=== PATIENT | female | born 1935 | race Caucasian/White ===

== ENCOUNTER 2020-04-15 10:26 | Inpatient (IN) | payer MEDICARE, OTHER ==
[~2020-04-15] VITALS: Ht 157.5 cm; Wt 62.0 kg
[2020-04-15] MEDS ORDERED: LOSA100T50 PO (10:43)
[2020-04-15] MEDS ORDERED: VITATAB74 PO (10:43)
[2020-04-15] MEDS ORDERED: ASPI81TA85 PO (10:43)
[2020-04-15] MEDS ORDERED: FURO20TA2 PO (10:43)
[2020-04-15] MEDS ORDERED: SIMV40TA20 PO (10:43)
[2020-04-15] MEDS ORDERED: AMLO5TAB6 PO (10:43)
[2020-04-15] MEDS ORDERED: FAMO40TA3 PO (10:43)
[2020-04-15] MEDS: NS 1,000 ML IV SCH ×3 (11:11→21:02)
[2020-04-15 11:15] LABS: HEMATOCRIT 48.1 % (36.0-47.0); HEMOGLOBIN 16.8 g/dl (12.0-15.5); MEAN CORPUSCULAR HEMOGLOBIN 32.6 pg (27.0-33.0); MEAN CORPUSCULAR HGB CONC 34.9 g/dl (32.0-36.5); MEAN CORPUSCULAR VOLUME 93.4 fl (80.0-96.0); PLATELET COUNT, AUTOMATED 344 10^3/uL (150-450); RED BLOOD COUNT 5.15 10^6/uL (4.00-5.40); WHITE BLOOD COUNT 8.7 10^3/uL (4.0-10.0)
[2020-04-15 11:40] LABS: ALBUMIN 3.7 GM/DL (3.2-5.2); BILIRUBIN,DIRECT 0.5 MG/DL (0.0-0.2); BILIRUBIN,TOTAL 1.5 MG/DL (0.2-1.0); TOTAL PROTEIN 7.2 GM/DL (6.4-8.2)
[2020-04-15] MEDS ORDERED: NS 500 ML IV ONE (11:45)
[2020-04-15 12:30] LABS: LYMPHOCYTES 11 % (16-44); MONOCYTES 8 % (0-5); NEUTROPHILS 77 % (28-66); PLATELET ESTIMATE NORMAL (NORMAL)
--- NOTE | 2020-04-15 12:55 | HPEPDOC ---
[facility] Medical History & Physical Date of Admission Apr 15, 2020 Date of Service: Apr 15, 2020 Primary Care Physician: LELIA ESTRADA MD [facility] Attending Physician: DARRELL WEAVER MD History and Physical TIME OF SERVICE: 2:10 PM CHIEF COMPLAINT: Dehydration HISTORY OF PRESENT ILLNESS: This is an 84-year-old female who came to the hospital because she felt dehydrated. Since last she had she had abdominal pain with reflux and vomiting but this has now resolved. She denied having any diarrhea at any point in time. Despite the symptoms resolving. She now feels dehydrated and dizzy, so she when she stands up. Therefore, she decided to come to the hospital for evaluation. In the ER, she received 500 mils dose of IV fluids and her creatinine was noted to be elevated REVIEW OF SYSTEMS: 12 point review of systems negative except as listed in HPI PAST MEDICAL/ SURGICAL HISTORY: Chronic hypertension Dyslipidemia GERD Hypothyroidism Osteoporosis/old T12 compression deformity Appendectomy Partial hysterectomy Bilateral cataract surgery SOCIAL HISTORY: She doesn't smoke. She doesn't drink FAMILY HISTORY: Diabetes ALLERGIES: Please see below. HOME MEDICATIONS: Please see below. PHYSICAL EXAMINATION: Vital Signs Date Time Temp Pulse Resp B/P (MAP) Pulse Ox O2 Delivery O2 Flow Rate FiO2 04/15/20 10:27 99.6 90 16 110/53 (72) 94 Room Air GEN: Slim build / well developed/ NAD HEENT: NCAT / mucus membranes moist and pink CVS: RRR/NMRG/ radial pulses intact LUNGS: no coughing / lungs are clear to auscultation bilaterally on room air ABDOMEN: Contour (flat) / soft & not tender with palpation MSK/EXTREMITIES: range of motion intact in all 4 extremities NEURO: CN 2-12 are grossly intact / speech is not dysarthric PSYCH: alert and oriented to person place and time/ able to understand and follow all commands LABORATORY DATA: Laboratory Tests 04/15/20 10:59 04/15/20 14:50 IMAGING: CT abdomen and pelvis "IMPRESSION: Small bowel obstruction with transition point identified in the right mid abdomen. No free air or free fluid. Unreviewed" ASSESSMENT: Ms. Sanchez is an 84 -year-old with a history of hypertension, dyslipidemia, GERD, hypothyroidism, osteoporosis, and multiple surgeries was admitted for evaluation of KAE. PLAN: 1. Dehydration/prerenal KAE Likely due to vomiting and poor oral intake Plan: Is/Os, daily weights / IVF / f/u ulytes for FENa or FEUrea / renal US / hold losartan / renal diet 2. Hypotension She has a history of hypertension likely secondary to vomiting Plan: Check orthostatics/fall precautions IV fluids / Zofran when necessary / hold amlodipine, losartan, and Lasix 3. Hyponatremia likely due to vomiting and poor oral intake Plan: IV fluids / f/u BMP 4.Abdominal pain of unclear cause Has resolved DVT PROPHYLAXIS: Heparin DISPOSITION: Pending clinical course Home Medications Scheduled Amlodipine Besylate (Amlodipine Besylate) 5 Mg Tablet, 1 TAB PO DAILY Aspirin (Aspir 81) 81 Mg Tablet.dr, 81 MG PO DAILY Carboxymethylcellulose Sodium (Refresh Tears) 15 Ml Drops, 1 DROP OU DAILY Cholecalciferol (Vitamin D3) (Vitamin D3) 1,000 Unit Tablet, 1,000 UNITS PO 2XW SUN/THURS Famotidine (Famotidine) 40 Mg Tablet, 40 MG PO DAILY Furosemide (Furosemide) 20 Mg Tablet, 20 MG PO DAILY Losartan Potassium (Losartan Potassium) 100 Mg Tablet, 100 MG PO DAILY Simvastatin (Simvastatin) 40 Mg Tablet, 40 MG PO DAILY Allergies Coded Allergies: No Known Allergies (Unverified , 04/15/20) A-FIB/CHADSVASC A-FIB History Current/History of A-Fib/PAF?: No Current PO Anticoag Therapy: DARRELL Browning MD Apr 15, 2020 12:55
[2020-04-15] MEDS ORDERED: VITAD1000T PO (13:24)
[2020-04-15] MEDS ORDERED: REFR0.5D8 OU (13:24)
[2020-04-15] MEDS ORDERED: MOM 30ML SUSPENSION UDC PO PRN (13:30)
[2020-04-15] MEDS ORDERED: ACETAMINOPHEN TAB 650MG DOSE (2X325MG) PO PRN (13:30)
[2020-04-15] MEDS ORDERED: MAALOX 30 ML SUSP *UDC PO PRN (13:30)
[2020-04-15 14:15] VITALS: BP 113/57
--- NOTE | 2020-04-15 14:37 | REP ---
CT ABDOMEN AND PELVIS WITHOUT CONTRAST: CT abdomen and pelvis performed without oral or IV contrast. Sagittal and coronal reconstruction images are performed. There are no priors for comparison. The visualized lung bases demonstrate fibrotic change. The liver is grossly unremarkable. The gallbladder is collapsed. Spleen is normal in size. Adrenal glands are normal. No gross pancreatic abnormality is seen. There are bilateral renal cysts present without hydronephrosis. There is moderate atherosclerotic calcification of the abdominal aorta without aneurysm. There is no adenopathy. There is no free air or free fluid. Multiple moderately dilated small bowel loops are present with moderate dilatation of the stomach as well. Findings are compatible with small bowel obstruction with a transition point identified in the right mid abdomen. The colon is relatively collapsed. There is diffuse diverticulosis of the lower left and sigmoid colon without evidence of acute diverticulitis. Urinary bladder is mildly distended and grossly unremarkable. The patient has had a hysterectomy. The ovaries are unremarkable with no pelvic mass. There are degenerative changes of the spine. There is a moderate compression deformity of T12, which is probably old. There is a small hiatal hernial. IMPRESSION: Small bowel obstruction with transition point identified in the right mid abdomen. No free air or free fluid. Electronically Signed by Van Kinney MD 04/16/2020 11:23 A
[2020-04-15 15:00] VITALS: BP_SYST 105; BP_SYST 111; BP_SYST 113; BP_DIAS 50; BP_DIAS 56; BP_DIAS 59
[2020-04-15 15:42] LABS: CALCIUM LEVEL 9.5 MG/DL (8.8-10.2); CREATININE FOR GFR 3.04 MG/DL (0.55-1.30); GLOMERULAR FILTRATION RATE 15.6 (>32); POTASSIUM SERUM 3.6 MEQ/L (3.5-5.1)
--- NOTE | 2020-04-15 17:38 | REPVR ---
PROCEDURE INFORMATION: Exam: US Retroperitoneal Limited, Kidneys Exam date and time: 04/15/2020 5:25 PM Age: 84 years old Clinical indication: Abnormal findings; Abnormal lab test; Abnormal kidney function lab tests; Additional info: Ralph TECHNIQUE: Imaging protocol: Real-time ultrasound of the retroperitoneum with image documentation. Examination was focused on the kidneys. COMPARISON: CT ABD PELVIS W/O CONTRAST 04/15/2020 1:33 PM FINDINGS: Right kidney: Right kidney measures 11 x 5.3 x 4 1 cm. Two cysts demonstrated in the right kidney measuring 3.8 x 3.9 x 3.7 cm in the upper pole and 4.3 x 3.9 x 4.7 cm in the lower pole. Left kidney: Left kidney measures 14.3 x 4.2 x 6.2 cm. There is a cyst in the upper pole measuring 6.1 x 6.4 x 6.2 cm as well as a smaller cyst in the lower pole measuring 1.2 x 1.6 x 1.2 cm containing or adjacent to an echogenic focus measuring approximately 4 mm. Bladder: Visualized bladder unremarkable. IMPRESSION: Bilateral renal cysts as described above. Small cyst in the lower pole of the left kidney associated with a calcification as described above consistent with a Bosniak type 2 lesion. No follow-up suggested. Electronically signed by: Vaughn Real On 04/15/2020 17:38:08 PM
[2020-04-15] MEDS: HEPARIN SOD (PORCINE) 5000UNITS/ML VIAL (J1644 PER 1000UNITS) SC SCH (21:01)
[2020-04-15 22:00] VITALS: BP 133/62
[2020-04-15 23:29] LABS: APPEARANCE, URINE CLOUDY (CLEAR); BACTERIA, URINE AUTO 2+ (NEGATIVE); BILIRUBIN, URINE AUTO NEGATIVE (NEGATIVE); BLOOD, URINE BLOOD NEGATIVE (NEGATIVE); COLOR, URINE YELLOW (YELLOW); GLUCOSE, URINE (UA) AUTO NEGATIVE (NEGATIVE); KETONE, URINE AUTO TRACE mg/dL (NEGATIVE); LEUKOCYTE ESTERASE, URINE AUTO NEGATIVE (NEGATIVE); MUCUS, URINE SMALL (NEGATIVE); NITRITE, URINE AUTO NEGATIVE (NEGATIVE); PROTEIN, URINE AUTO NEGATIVE (NEGATIVE); RBC, URINE AUTO 4 /HPF (0-3); SPECIFIC GRAVITY URINE AUTO 1.015 (1.002-1.035); SQUAMOUS EPITHELIAL CELL UR AU 1 /HPF (0-6); UROBILINOGEN, URINE AUTO 0.2 mg/dL (0.0-2.0); WBC, URINE AUTO 2 /HPF (0-3)
[2020-04-15 23:36] LABS: OSMOLALITY URINE 461 MOSM/KG (500-800)
[2020-04-15 23:45] LABS: POTASSIUM RANDOM URINE 51.5 MEQ/L; SODIUM,RANDOM URINE < 10 MEQ/L
[2020-04-16] MEDS ORDERED: ONDANSETRON 4 MG TAB PO PRN
[2020-04-16] MEDS ORDERED: ONDANSETRON 4MG/2ML VIAL IV PRN (00:15)
[2020-04-16 06:00] VITALS: BP 126/59
[2020-04-16 06:33] LABS: HEMATOCRIT 44.7 % (36.0-47.0); HEMOGLOBIN 15.8 g/dl (12.0-15.5); MEAN CORPUSCULAR HEMOGLOBIN 32.8 pg (27.0-33.0); MEAN CORPUSCULAR HGB CONC 35.3 g/dl (32.0-36.5); MEAN CORPUSCULAR VOLUME 92.9 fl (80.0-96.0); PLATELET COUNT, AUTOMATED 288 10^3/uL (150-450); RED BLOOD COUNT 4.81 10^6/uL (4.00-5.40); WHITE BLOOD COUNT 9.4 10^3/uL (4.0-10.0)
[2020-04-16 07:00] LABS: CREATININE FOR GFR 1.98 MG/DL (0.55-1.30); GLOMERULAR FILTRATION RATE 25.6 (>32); MAGNESIUM LEVEL 2.8 MG/DL (1.8-2.4); POTASSIUM SERUM 2.8 MEQ/L (3.5-5.1)
[2020-04-16] MEDS ORDERED: POTASSIUM CHLORIDE 10 MEQ SR TABLET PO ONE (07:30)
[2020-04-16] MEDS ORDERED: KCL 10MEQ/100ML SWI (KRUN) 10 MEQ in IV 1 EA IV ONE (07:30)
[2020-04-16] MEDS: HEPARIN SOD (PORCINE) 5000UNITS/ML VIAL (J1644 PER 1000UNITS) SC SCH ×2 (08:49→20:53)
[2020-04-16] MEDS: VITAMIN D 1,000 INTERNATIONAL UNITS TABLET PO SCH (08:49)
[2020-04-16] MEDS: FAMOTIDINE 20 MG TAB PO SCH (08:49)
[2020-04-16] MEDS: ASPIRIN 81 MG ENTERIC TAB PO SCH (08:49)
--- NOTE | 2020-04-16 09:45 | IPNPDOC ---
Text Note Date of Service The patient was seen on 04/16/20. NOTE Subjective: patient seen and examined at bedside. No acute overnight events reported. Complains of heartburn type symptoms, worsens after eating. States this has been going on for several months, and also associated with nausea and non-bloody, non-bilious vomiting. Objective: General: NAD, lying comfortably in bed HEENT: NCAT / mucus membranes moist and pink Heart: +S1S2, RRR Lungs: CTA B/L Abd: soft, NT, +BS Ext: no edema A/P: 84yo female with PMHx HTN, DLP, GERD, hypothyroidism, osteoporosis, and multiple surgeries was admitted for evaluation of KAE, found to have SBO. # Dehydration/prerenal AKE - continue IVF - home ARB on hold - renal US noted - possibly secondary to SBO - d/w surgery #hypotension - PMHx HTN - like secondary to hypovolemia - as above - hold home meds - amlodipine, losartan, and Lasix # Hyponatremia - likely hypovolemic hypotonic - improving with IV fluids #SBO - to d/w surgery DVT PROPHYLAXIS: Heparin DISPOSITION: Pending clinical course VS,Aristeo, I+O VS, Aristeo, I+O Laboratory Tests 04/15/20 10:59 04/15/20 14:50 04/16/20 06:26 Vital Signs Date Time Temp Pulse Resp B/P (MAP) Pulse Ox O2 Delivery O2 Flow Rate FiO2 04/16/20 06:00 99.1 80 18 126/59 (81) 88 Room Air I&O- Last 24 Hours up to 6 AM 04/16/20 06:00 Intake Total 2378 ml Output Total 660 ml Balance 1718 ml JOSE LONGORIA MD Apr 16, 2020 09:45
--- NOTE | 2020-04-16 11:33 | REP ---
KUB ABDOMEN AND PELVIS: Two KUB films of the abdomen and pelvis performed. Comparison is made with a prior CT 04/15/2020. There are moderately dilated small bowel loops seen in the abdomen and pelvis consistent with small bowel obstruction. There is very mild air and fecal material distally in the colon. There are phleboliths in the pelvis as well as scattered vascular calcifications in the abdomen and pelvis. There are mild degenerative changes of the spine. IMPRESSION: Several mildly dilated small bowel loops again seen. Electronically Signed by Van Kinney MD 04/21/2020 05:59 P
[2020-04-16 14:00] VITALS: BP 129/58
[2020-04-16] MEDS: NS 1,000 ML IV SCH (14:06)
[2020-04-16] MEDS: KCL 10MEQ/100ML SWI (KRUN) 10 MEQ in IV 1 EA IV SCH ×2 (14:06→17:21)
--- NOTE | 2020-04-16 14:24 | CR.PDOC ---
General Surgery Consultation Date of Consultation 04/16/20 History and Physical CONSULT REPORT FOR: Dr. Jaspal Cardenas REASON FOR CONSULTATION: small bowel obstruction HISTORY OF PRESENT ILLNESS: Patient admitted last night with complaints of one week history of nausea, vomiting which seems to actually be resolving gradually but patient felt weak and dehydrated, thus she consulted at the emergency room. She reports that this started last with crampy periumbilical abdominal pain and discomfort associated with nausea, bloating and vomiting. She has lessened her oral intake because of this. She still is able to intermittently pass flatus and have some soft formed stools in small amounts. Last bowel movement was yesterday and she reports this is soft formed. She still is able to pass flatus. She burps intermittently to release the gas and feels like he is on the verge of throwing up. She still occasionally gets crampy abdominal discomfort. She denies any prior episodes of obstruction. She has a prior laparoscopic appendectomy done while she was traveling in [place] and also reports a remote history of a partial hysterectomy, the rational for which she could not remember at this time. She has no prior colonoscopies done for colorectal cancer screening. PAST MEDICAL/ SURGICAL HISTORY: Chronic hypertension. Dyslipidemia. GERD Hypothyroidism Osteoporosis/old T12 compression deformity Appendectomy Partial hysterectomy Bilateral cataract surgery SOCIAL HISTORY: She doesn't smoke. She doesn't drink FAMILY HISTORY: Diabetes ALLERGIES: Please see below. FAMILY HISTORY: Denies any significant family history for malignancy HOME MEDICATIONS: Please see below. REVIEW OF SYSTEMS: GENERAL: Symptoms are a week old. Denies fevers chills, recent travel, sick contacts, unexplained weight loss. HEENT: Prior cataract surgery, slightly hard of hearing. NECK: Denies any neck pain CARDIOVASCULAR: Denies chest pain and palpitations. MUSCULOSKELETAL: Reports some mild back pain. SKIN: Denies rash. NEUROLOGIC: Denies headache, stroke and transient ischemic attack. PSYCHIATRIC: Denies anxiety and depression. ENDOCRINE: On thyroid replacement/supplementation. HEMATOLOGY/ONCOLOGY: Denies bleeding or clotting disorder. HEART: Denies any chest pains, palpitations, paroxysmal dyspnea, orthopnea. PULMONARY: Denies chronic cough, dyspnea and wheezing. GASTROINTESTINAL: See HPI. Patient has no prior colonoscopy. GENITOURINARY: Denies dysuria, frequency, hematuria and nocturia. ENDOCRINE: Denies polydipsia, polyphagia, polyuria, heat or cold intolerance. INFECTIOUS: Denies any recent upper respiratory tract infection, UTI, need for use of antibiotics. NUTRITION: Reports poor appetite secondary to recent abdominal symptoms.. PHYSICAL EXAMINATION: VITALS SIGNS: Please see below. GENERAL APPEARANCE: Patient seen relatively comfortable, sitting up on the bed. She appears awake, alert and well oriented. She's knowledgeable about her history and appears reliable. SKIN: Warm and dry. HEENT: Normocephalic, atraumatic. [place] palpebral conjunctiva, anicteric sclerae. Lips and mucosa appear mildly dry. NECK: Supple, no thyromegaly. No obvious jugular venous distention. LUNGS: Clear to auscultation bilaterally. No wheezing appreciated. HEART: No chest wall abnormalities. Regular rate and rhythm with no murmurs appreciated. ABDOMEN: Abdomen is softly distended and tympanitic to percussion throughout. Hypoactive bowel sounds. She had prior laparoscopic port sites from her appendectomy. I see no Pfannenstiel incision so she might have had a vaginal hysterectomy done. I appreciate no umbilical or groin herniations. She has no abdominal tenderness on light or deep palpation EXTREMITIES: Extremities have no deformities. No edema identified ANCILLARIES: . LABORATORY DATA: Please see below. IMAGING STUDIES: CT abdomen and pelvis Small bowel obstruction with transition point identified in the right mid abdomen. No free air or free fluid. AXR There are moderately dilated small bowel loops seen in the abdomen and pelvis consistent with small bowel obstruction. There is very mild air and fecal material distally in the colon. There are phleboliths in the pelvis as well as scattered vascular calcifications in the abdomen and pelvis. There are mild degenerative changes of the spine. IMPRESSION AND PLAN: Partial small bowel obstruction Patient has one-week history of what looked like a partial bowel obstruction and does not seem to be improving. She still has evidence of abdominal distention and she still is showing signs of partial obstruction she has no tenderness or signs of any threatened bowel. She seems to be adequately hydrated at this point. A repeat x-ray done today she's still shows moderate intestinal dilation though there is air in the colon that I could appreciate. She has no signs of peritonitis. She would need bowel decompression I spoke to her about placing a nasogastric tube for bowel decompression. This is her her first documented bouts of bowel obstruction so she has a high likelihood of resolving this nonoperatively. Is not entirely clear what the nature of the obstruction as though she did have a history of hysterectomy and appendectomy so this could be secondary to adhesions. She has no prior colonoscopies though the level of obstruction is clearly at the small bowel. I will follow her up closely. If the symptoms do not resolve with nonoperative therapy, I spoke to her that she will need operative treatment. If we are able to decompress her little bit I'm hoping that might be able to do this laparoscopically or L she will need open surgery. Review of her medical history does not show any significant history for cardiac disease or pulmonary disease or diabetes. Vital Signs Vital Signs Date Time Temp Pulse Resp B/P (MAP) Pulse Ox O2 Delivery O2 Flow Rate FiO2 04/16/20 06:00 99.1 80 18 126/59 (81) 88 Room Air I&Os I&O- Last 24 Hours up to 6 AM 04/16/20 06:00 Intake Total 2378 ml Output Total 660 ml Balance 1718 ml Laboratory Data Labs 24H Laboratory Tests 2 04/15/20 14:50: Anion Gap 10, Glomerular Filtration Rate 15.6L, Osmolality 295, Calcium Level 9.5 04/15/20 23:02: Urine Color YELLOW, Urine Appearance CLOUDYH, Urine pH 5.0, Urine Specific Gr avity 1.015, Urine Protein NEGATIVE, Urine Glucose (Auto)(UA) NEGATIVE, Urine Ketones (Auto) TRACEH, Urine Blood NEGATIVE, Urine Nitrite NEGATIVE, Urine Bilirubin NEGATIVE, Urine Urobilinogen 0.2, Urine Leukocyte Esterase (Auto) NEGATIVE, Urine WBC (Auto) 2, Urine RBC (Auto) 4H, Urine Hyaline Casts (Auto) 0, Urine Bacteria (Auto) 2+H, Urine Squamous Epithelial Cells 1, Urine Mucus (Auto) SMALL, Urine Sperm (Auto) , Urine Random Osmolality 461L, Urine Random Creatinine 121.0, Urine Random Sodium < 10, Urine Random Potassium 51.5 04/16/20 06:26: Anion Gap 12, Glomerular Filtration Rate 25.6L, Calcium Level 9.0, Nucleated Red Blood Cells % (auto) 0.0, Magnesium Level 2.8H CBC/BMP Laboratory Tests 04/15/20 14:50 04/16/20 06:26 04/16/20 13:02 Home Medications Scheduled Amlodipine Besylate (Amlodipine Besylate) 5 Mg Tablet, 1 TAB PO DAILY, (Reported) Aspirin (Aspir 81) 81 Mg Tablet.dr, 81 MG PO DAILY, (Reported) Carboxymethylcellulose Sodium (Refresh Tears) 15 Ml Drops, 1 DROP OU DAILY, (Reported) Cholecalciferol (Vitamin D3) (Vitamin D3) 1,000 Unit Tablet, 1,000 UNITS PO 2XW, (Reported) SUN/THURS Famotidine (Famotidine) 40 Mg Tablet, 40 MG PO DAILY, (Reported) Furosemide (Furosemide) 20 Mg Tablet, 20 MG PO DAILY, (Reported) Losartan Potassium (Losartan Potassium) 100 Mg Tablet, 100 MG PO DAILY, (Re ported) Simvastatin (Simvastatin) 40 Mg Tablet, 40 MG PO DAILY, (Reported) Allergies Coded Allergies: No Known Allergies (Unverified , 04/15/20) NO LOPEZ MD Apr 16, 2020 13:43
[2020-04-16] MEDS ORDERED: KCL 10MEQ IN STERILE WATER 100ML As Ordered ONE (17:18)
--- NOTE | 2020-04-16 21:08 | ECGEPIP ---
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
--- NOTE | 2020-04-16 21:19 | ECGEPIP ---
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
[2020-04-16 22:00] VITALS: BP 127/60
[2020-04-17 06:00] VITALS: BP 122/58
[2020-04-17] MEDS: NS 1,000 ML IV SCH (07:46)
[2020-04-17 07:56] LABS: HEMATOCRIT 40.9 % (36.0-47.0); MEAN CORPUSCULAR HEMOGLOBIN 32.1 pg (27.0-33.0); MEAN CORPUSCULAR HGB CONC 34.2 g/dl (32.0-36.5); MEAN CORPUSCULAR VOLUME 93.8 fl (80.0-96.0); PLATELET COUNT, AUTOMATED 253 10^3/uL (150-450); RED BLOOD COUNT 4.36 10^6/uL (4.00-5.40); WHITE BLOOD COUNT 7.8 10^3/uL (4.0-10.0)
[2020-04-17 08:28] LABS: CALCIUM LEVEL 8.3 MG/DL (8.8-10.2); CREATININE FOR GFR 1.13 MG/DL (0.55-1.30); MAGNESIUM LEVEL 2.7 MG/DL (1.8-2.4); POTASSIUM SERUM 2.8 MEQ/L (3.5-5.1)
[2020-04-17 08:52] LABS: ATYPICAL LYMPH 1 % (0-5); EOSINOPHILS 3 % (0-3); LYMPHOCYTES 8 % (16-44); MONOCYTES 7 % (0-5); NEUTROPHILS 81 % (28-66); PLATELET ESTIMATE NORMAL (NORMAL)
[2020-04-17] MEDS ORDERED: POTASSIUM CHLORIDE 10% LIQ 20 MEQ/15 ML UDC PO ONE (09:30)
--- NOTE | 2020-04-17 09:32 | IPNPDOC ---
Text Note Date of Service The patient was seen on 04/17/20. NOTE Subjective: Patient seen and examined at bedside. No acute overnight events reported. Much improvement with her abdominal pain. SBO noted, surgery consulted, NG tube placed. Objective: General: NAD, lying comfortably in bed HEENT: NCAT / mucus membranes moist and pink Heart: +S1S2, RRR Lungs: CTA B/L Abd: soft, NT, +BS Ext: no edema A/P: 84yo female with PMHx HTN, DLP, GERD, hypothyroidism, osteoporosis, and multiple surgeries was admitted for evaluation of KAE, found to have SBO. # Dehydration/prerenal KAE - continue IVF - home ARB on hold - renal US noted #SBO - surgical c/s appreciated - NG tube placed - pain essentially resolved #hypotension - PMHx HTN - like secondary to hypovolemia - as above - hold home meds - amlodipine, losartan, and Lasix # Hyponatremia - resolved - likely hypovolemic hypotonic - improving with IV fluids #hypokalemia - continue to follow and replete as needed - check urine potassium/creatinine #renal cysts - no follow up as per radiology recs DVT PROPHYLAXIS: Heparin DISPOSITION: Pending clinical course VS,Elizae, I+O VS, Evanbone, I+O Laboratory Tests 04/16/20 13:02 04/17/20 07:43 Vital Signs Date Time Temp Pulse Resp B/P (MAP) Pulse Ox O2 Delivery O2 Flow Rate FiO2 04/17/20 06:00 98.9 74 16 122/58 (79) 93 Room Air I&O- Last 24 Hours up to 6 AM 04/17/20 06:00 Intake Total 2700 ml Output Total 3500 ml Balance -800 ml JOSE LONGORIA MD Apr 17, 2020 09:32
[2020-04-17] MEDS: KCL 20MEQ in NS 1000ML 1,000 ML IV SCH ×2 (09:58→21:20)
[2020-04-17] MEDS: ASPIRIN 81 MG ENTERIC TAB PO SCH (09:58)
[2020-04-17] MEDS: FAMOTIDINE 20 MG TAB PO SCH (09:58)
[2020-04-17] MEDS: HEPARIN SOD (PORCINE) 5000UNITS/ML VIAL (J1644 PER 1000UNITS) SC SCH ×2 (09:59→21:20)
--- NOTE | 2020-04-17 11:33 | REP ---
REASON: Followup small bowel obstruction. COMPARISON: 04/16/2020 at 5 a.m. Since the last examination, a nasogastric tube has been placed. The tip of the tube appears to be in the proximal duodenum. There are a few mildly dilated gas-filled small bowel loops, essentially unchanged from the prior exam. Limited KUB shows no evidence of gross free intraperitoneal air. The organ silhouettes are essentially unchanged from the prior exam. The osseous structures are stable and intact showing chronic changes. IMPRESSION: As above. Electronically Signed by Chris Beavers DO 04/17/2020 03:04 P
--- NOTE | 2020-04-17 12:26 | IPNPDOC ---
Text Note Date of Service The patient was seen on 04/17/20. NOTE Patient reports she's feeling much better today with ng tube decompression. She reports passing flatus and had one solid bm today. VS stable I/O NG tube 1800 mL's yesterday, 200 mL overnight On examination Patient appears comfortable Awake, alert and oriented She has a nasogastric tube in place draining bilious fluid what 100 mL's in the canister. No jugular venous distention Lung sounds are clear to auscultation bilaterally with no wheezing, good respiratory effort Regular heart rate and rhythm without murmurs Abdomen is much softer, nondistended nontender on palpation, active bowel sounds No significant extremity edema Impression Partial small bowel obstruction seems to be resolving I will have the NG tube clamped and check it again in 6 hours or so. It appears less than 200 mL's, I think she will tolerate removal of the NG tube and start her on clear liquids. We can continue clamping the tube and tested every 6-8 hours if she continues to have some retention in the stomach. If the nasogastric tube is able to be discontinued and she tolerates clear liquids and advance the diet as tolerated. I presume the obstruction is from adhesion from her prior surgeries. VS,Fishbone, I+O VS, Fishbone, I+O Laboratory Tests 04/16/20 13:02 04/17/20 07:43 Vital Signs Date Time Temp Pulse Resp B/P (MAP) Pulse Ox O2 Delivery O2 Flow Rate FiO2 04/17/20 06:00 98.9 74 16 122/58 (79) 93 Room Air I&O- Last 24 Hours up to 6 AM 04/17/20 06:00 Intake Total 2700 ml Output Total 3500 ml Balance -800 ml NO LOPEZ MD Apr 17, 2020 12:26
[2020-04-17 14:00] VITALS: BP 124/62
[2020-04-17 17:01] LABS: CALCIUM LEVEL 8.9 MG/DL (8.8-10.2); CREATININE FOR GFR 1.05 MG/DL (0.55-1.30); GLOMERULAR FILTRATION RATE 53.3 (>32); POTASSIUM SERUM 3.4 MEQ/L (3.5-5.1)
[2020-04-17 22:00] VITALS: BP 148/64
[2020-04-18 06:00] VITALS: BP 148/76
[2020-04-18 06:43] LABS: HEMATOCRIT 39.7 % (36.0-47.0); HEMOGLOBIN 13.3 g/dl (12.0-15.5); MEAN CORPUSCULAR HEMOGLOBIN 32.2 pg (27.0-33.0); MEAN CORPUSCULAR HGB CONC 33.5 g/dl (32.0-36.5); MEAN CORPUSCULAR VOLUME 96.1 fl (80.0-96.0); PLATELET COUNT, AUTOMATED 259 10^3/uL (150-450); RED BLOOD COUNT 4.13 10^6/uL (4.00-5.40); WHITE BLOOD COUNT 7.9 10^3/uL (4.0-10.0)
[2020-04-18 07:02] LABS: BLOOD UREA NITROGEN 26 MG/DL (7-18); CALCIUM LEVEL 8.6 MG/DL (8.8-10.2); CARBON DIOXIDE LEVEL 26 MEQ/L (21-32); CHLORIDE LEVEL 111 MEQ/L (98-107); CREATININE FOR GFR 0.89 MG/DL (0.55-1.30); GLOMERULAR FILTRATION RATE > 60.0 (>32); GLUCOSE, FASTING 79 MG/DL (70-100); MAGNESIUM LEVEL 2.2 MG/DL (1.8-2.4); POTASSIUM SERUM 3.3 MEQ/L (3.5-5.1); SODIUM LEVEL 142 MEQ/L (136-145)
[2020-04-18] MEDS: KCL 20MEQ in NS 1000ML 1,000 ML IV SCH (08:34)
[2020-04-18] MEDS: FAMOTIDINE 20 MG TAB PO SCH (08:35)
[2020-04-18] MEDS: ASPIRIN 81 MG ENTERIC TAB PO SCH (08:35)
[2020-04-18] MEDS: HEPARIN SOD (PORCINE) 5000UNITS/ML VIAL (J1644 PER 1000UNITS) SC SCH ×2 (08:35→20:09)
[2020-04-18] MEDS ORDERED: POTASSIUM CHLORIDE 10% LIQ 20 MEQ/15 ML UDC PO ONE (09:00)
--- NOTE | 2020-04-18 11:34 | IPNPDOC ---
Text Note Date of Service The patient was seen on 04/18/20. NOTE Subjective: Patient seen and examined at bedside. No acute overnight events reported. NG tube removed. Patient feels well, complains of some abdominal pain with drinking her liquid potassium supplement. Objective: General: NAD, lying comfortably in bed HEENT: NCAT, MMM Heart: +S1S2, RRR Lungs: CTA B/L Abd: soft, NT, +BS Ext: no edema A/P: 84yo female with PMHx HTN, DLP, GERD, hypothyroidism, osteoporosis, and multiple surgeries was admitted for evaluation of KAE, found to have SBO. # Dehydration/prerenal KAE - d/c IVF - home ARB on hold - renal US noted #SBO - s/p NG tube - advancing diet today - surgical c/s appreciated #hypotension - PMHx HTN - like secondary to hypovolemia - as above - hold home meds - amlodipine, losartan, and Lasix # Hyponatremia - resolved - likely hypovolemic hypotonic #hypokalemia - continue to follow and replete as needed - urine potassium/creatinine noted - likely transcellular shift - possibly from poor diet #renal cysts - no follow up as per radiology recs DVT PROPHYLAXIS: Heparin DISPOSITION: anticipating discharge in 24-48 hours VS,Aristeo, I+O VS, Aristeo, I+O Laboratory Tests 04/17/20 16:03 04/18/20 06:04 Vital Signs Date Time Temp Pulse Resp B/P (MAP) Pulse Ox O2 Delivery O2 Flow Rate FiO2 04/18/20 06:00 98.8 66 17 148/76 (100) 93 Room Air I&O- Last 24 Hours up to 6 AM 04/18/20 06:00 Intake Total 2700 ml Output Total 1940 ml Balance 760 ml JOSE LONGORIA MD Apr 18, 2020 11:34
[2020-04-18 14:00] VITALS: BP 140/70
--- NOTE | 2020-04-18 21:02 | IPNPDOC ---
Text Note Date of Service The patient was seen on 04/18/20. NOTE No acute events overnight. She is tolerating clq diet. Denies nausea, emesis, fevers, or pain. VSSAF NAD abd - soft, NT, ND labs - below A) 84y/o female with partial SBO vs ileus that has resolved P)reg diet ambulate stable for d/c home in the am if tolerating the reg diet Jeffery Hernandez DO VS,Fishbone, I+O VS, Fishbone, I+O Laboratory Tests 04/18/20 06:04 Vital Signs Date Time Temp Pulse Resp B/P (MAP) Pulse Ox O2 Delivery O2 Flow Rate FiO2 04/18/20 14:00 98.6 68 18 140/70 (93) 96 Room Air I&O- Last 24 Hours up to 6 AM 04/18/20 06:00 Intake Total 2700 ml Output Total 1940 ml Balance 760 ml BERTHA HERNANDEZ DO Apr 18, 2020 21:02
[2020-04-18 22:00] VITALS: BP 121/58
[2020-04-19 06:00] VITALS: BP 128/60
[2020-04-19 06:53] LABS: HEMATOCRIT 36.9 % (36.0-47.0); HEMOGLOBIN 12.7 g/dl (12.0-15.5); MEAN CORPUSCULAR HEMOGLOBIN 32.6 pg (27.0-33.0); MEAN CORPUSCULAR HGB CONC 34.4 g/dl (32.0-36.5); MEAN CORPUSCULAR VOLUME 94.9 fl (80.0-96.0); PLATELET COUNT, AUTOMATED 244 10^3/uL (150-450); RED BLOOD COUNT 3.89 10^6/uL (4.00-5.40); WHITE BLOOD COUNT 9.7 10^3/uL (4.0-10.0)
[2020-04-19 07:17] LABS: BLOOD UREA NITROGEN 16 MG/DL (7-18); CALCIUM LEVEL 8.6 MG/DL (8.8-10.2); CARBON DIOXIDE LEVEL 24 MEQ/L (21-32); CHLORIDE LEVEL 112 MEQ/L (98-107); GLOMERULAR FILTRATION RATE > 60.0 (>32); GLUCOSE, FASTING 95 MG/DL (70-100); MAGNESIUM LEVEL 1.8 MG/DL (1.8-2.4); POTASSIUM SERUM 3.8 MEQ/L (3.5-5.1); SODIUM LEVEL 142 MEQ/L (136-145)
[2020-04-19] MEDS: FAMOTIDINE 20 MG TAB PO SCH (09:36)
[2020-04-19] MEDS: VITAMIN D 1,000 INTERNATIONAL UNITS TABLET PO SCH (09:36)
[2020-04-19] MEDS: HEPARIN SOD (PORCINE) 5000UNITS/ML VIAL (J1644 PER 1000UNITS) SC SCH ×2 (09:36→20:52)
[2020-04-19] MEDS: ASPIRIN 81 MG ENTERIC TAB PO SCH (09:36)
--- NOTE | 2020-04-19 10:24 | IPNPDOC ---
Text Note Date of Service The patient was seen on 04/19/20. NOTE Subjective: Patient seen and examined at bedside. No acute overnight events reported. NG tube removed. Patient feels well, appears to be tolerating her diet. Does note some dry cough. Objective: General: NAD, lying comfortably in bed HEENT: NCAT, MMM Heart: +S1S2, RRR Lungs: CTA B/L Abd: soft, NT, +BS Ext: no edema A/P: 84yo female with PMHx HTN, DLP, GERD, hypothyroidism, osteoporosis, and multiple surgeries was admitted for evaluation of KAE, found to have SBO. # Dehydration/prerenal KAE - d/c IVF - home ARB on hold - renal US noted #SBO - s/p NG tube - tolerating diet - surgical c/s appreciated #hypotension - resolved - PMHx HTN - like secondary to hypovolemia - as above - home meds on hold - amlodipine, losartan, and Lasix # Hyponatremia - resolved - likely hypovolemic hypotonic #hypokalemia - resolved - continue to follow and replete as needed - urine potassium/creatinine noted - likely transcellular shift - likely from poor diet #renal cysts - no follow up as per radiology recs DVT PROPHYLAXIS: Heparin DISPOSITION: anticipating discharge in 24 hours; discussed at length on phone with hemal John [phone] VS,Aristeo, I+O VS, Aristeo, I+O Laboratory Tests 04/19/20 06:21 Vital Signs Date Time Temp Pulse Resp B/P (MAP) Pulse Ox O2 Delivery O2 Flow Rate FiO2 04/19/20 06:00 97.8 71 18 128/60 (82) 96 04/18/20 14:00 Room Air I&O- Last 24 Hours up to 6 AM 04/19/20 05:59 Intake Total 3640 ml Output Total 1280 ml Balance 2360 ml JOSE LONGORIA MD Apr 19, 2020 10:24
[2020-04-19 14:00] VITALS: BP 124/60
[2020-04-19 22:00] VITALS: BP 145/69
[2020-04-20 05:53] LABS: HEMATOCRIT 35.7 % (36.0-47.0); HEMOGLOBIN 12.2 g/dl (12.0-15.5); MEAN CORPUSCULAR HEMOGLOBIN 32.3 pg (27.0-33.0); MEAN CORPUSCULAR HGB CONC 34.2 g/dl (32.0-36.5); MEAN CORPUSCULAR VOLUME 94.4 fl (80.0-96.0); PLATELET COUNT, AUTOMATED 229 10^3/uL (150-450); RED BLOOD COUNT 3.78 10^6/uL (4.00-5.40); WHITE BLOOD COUNT 10.3 10^3/uL (4.0-10.0)
[2020-04-20 06:00] VITALS: BP 153/82
[2020-04-20 06:12] LABS: BLOOD UREA NITROGEN 12 MG/DL (7-18); CALCIUM LEVEL 8.5 MG/DL (8.8-10.2); CARBON DIOXIDE LEVEL 24 MEQ/L (21-32); CHLORIDE LEVEL 110 MEQ/L (98-107); CREATININE FOR GFR 0.78 MG/DL (0.55-1.30); GLOMERULAR FILTRATION RATE > 60.0 (>32); GLUCOSE, FASTING 104 MG/DL (70-100); MAGNESIUM LEVEL 1.8 MG/DL (1.8-2.4); POTASSIUM SERUM 3.8 MEQ/L (3.5-5.1); SODIUM LEVEL 140 MEQ/L (136-145)
[2020-04-20] MEDS ORDERED: LOSARTAN 50MG TABLET PO SCH (09:00)
[2020-04-20] MEDS ORDERED: SIMVASTATIN 40 MG TAB PO SCH (09:00)
[2020-04-20] MEDS: ASPIRIN 81 MG ENTERIC TAB PO SCH (10:22)
[2020-04-20] MEDS: FAMOTIDINE 20 MG TAB PO SCH (10:22)
[2020-04-20 10:25] VITALS: BP 173/80
[2020-04-20] MEDS: HEPARIN SOD (PORCINE) 5000UNITS/ML VIAL (J1644 PER 1000UNITS) SC SCH (10:25)
--- NOTE | 2020-04-20 13:55 | DS.PDOC ---
Discharge Summary General Date of Admission Apr 15, 2020 at 13:17 Date of Discharge 04/20/20 Discharge Summary PROCEDURES PERFORMED DURING STAY: [None]. ADMITTING DIAGNOSES: 1. abd pain, N/V DISCHARGE DIAGNOSES: # Dehydration/prerenal KAE #SBO #hypotension # Hyponatremia #hypokalemia #renal cysts COMPLICATIONS/CHIEF COMPLAINT: Dehydration,Renal Failure. HISTORY OF PRESENT ILLNESS: 84-year-old female who came to the hospital because she felt dehydrated, and several day history of abdominal pain with reflux and vomiting. She denied having any diarrhea at any point in time. She decided to come to the hospital for evaluation. In the ER, she received 500 mils dose of IV fluids and her creatinine was noted to be elevated. She was admitted for evaluation of KAE, and found to have SBO. Evaluated by surgery and decided to proceed with conservative management. She was passing gas and having bowel movements. An NG tube was placed, with eventual resolution of her symptoms. Her diet was advanced and tolerated. She was deemed stable for discharge home on further evaluation by surgery, with outpatient follow up. DISCHARGE MEDICATIONS: Please see below. ALLERGIES: Please see below. PHYSICAL EXAMINATION ON DISCHARGE: VITAL SIGNS: Please see below. General: NAD, lying comfortably in bed HEENT: NCAT, MMM Heart: +S1S2, RRR Lungs: CTA B/L Abd: soft, NT, +BS Ext: no edema LABORATORY DATA: Please see below. ACTIVITY: [As tolerated]. DISPOSITION: 01 Home, Self-Care. DISCHARGE INSTRUCTIONS: 1. Follow up PCP in 3-5 days DISCHARGE CONDITION: [Stable]. TIME SPENT ON DISCHARGE: 35 minutes. Vital Signs/I&Os Vital Signs Date Time Temp Pulse Resp B/P (MAP) Pulse Ox O2 Delivery O2 Flow Rate FiO2 04/20/20 10:25 173/80 04/20/20 06:00 97.6 71 18 95 04/19/20 14:00 Room Air I&O- Last 24 Hours up to 6 AM 04/20/20 06:00 Intake Total 1560 ml Output Total 1500 ml Balance 60 ml Laboratory Data Labs 24H Laboratory Tests 2 04/20/20 05:30: Nucleated Red Blood Cells % (auto) 0.3H, Anion Gap 6L, Glomerular Filtration Rate > 60.0, Calcium Level 8.5L, Magnesium Level 1.8 CBC/BMP Laboratory Tests 04/20/20 05:30 Discharge Medications Scheduled Amlodipine Besylate (Amlodipine Besylate) 5 Mg Tablet, 1 TAB PO DAILY, (Reported) Aspirin (Aspir 81) 81 Mg Tablet.dr, 81 MG PO DAILY, (Reported) Carboxymethylcellulose Sodium (Refresh Tears) 15 Ml Drops, 1 DROP OU DAILY, (Reported) Cholecalciferol (Vitamin D3) (Vitamin D3) 1,000 Unit Tablet, 1,000 UNITS PO 2XW, (Reported) SUN/THURS Famotidine (Famotidine) 40 Mg Tablet, 40 MG PO DAILY, (Reported) Furosemide (Furosemide) 20 Mg Tablet, 20 MG PO DAILY, (Reported) Losartan Potassium (Losartan Potassium) 100 Mg Tablet, 100 MG PO DAILY, (Reported) Simvastatin (Simvastatin) 40 Mg Tablet, 40 MG PO DAILY, (Reported) Allergies Coded Allergies: No Known Allergies (Unverified , 04/15/20) JOSE LONGORIA MD Apr 20, 2020 13:55
== END 2020-04-20 13:43 | disposition home or self-care (01) | DRG 683 ==
LOC: M ED 10:26 → M ED INP 13:17 → ENRESERV 13:36 → M MSPAV 14:15
PROVIDERS: ADMIT Internal Medicine; ATTEND Internal Medicine
DX: N17.9 Acute kidney failure, unspecified (principal); E87.1 Hypo-osmolality and hyponatremia; K56.600 Partial intestinal obstruction, unspecified as to cause; E86.0 Dehydration; N28.1 Cyst of kidney, acquired; I95.9 Hypotension, unspecified; R10.9 Unspecified abdominal pain; I10 Essential (primary) hypertension; E78.5 Hyperlipidemia, unspecified; E87.6 Hypokalemia; K21.9 Gastro-esophageal reflux disease without esophagitis; E03.9 Hypothyroidism, unspecified; M81.0 Age-related osteoporosis without current pathological fracture; Z90.49 Acquired absence of other specified parts of digestive tract; Z98.41 Cataract extraction status, right eye; Z98.42 Cataract extraction status, left eye; Z79.82 Long term (current) use of aspirin; Z79.899 Other long term (current) drug therapy

== ENCOUNTER → 2022-02-10 | Outpatient (REF) | payer MEDICARE ==
[~2022-02-10] MED LIST: AMLO1TAB24 PO; ASPI81TA86 PO; FAMO40TA3 PO; FURO20TA2 PO; LOSA100T45 PO; REFR0.5D8 OU; SIMV40TA20 PO; VITA100093 PO; VITATAB74 PO
[2022-02-10 12:20] LABS: HEMATOCRIT 44.4 % (36.0-47.0); HEMOGLOBIN 14.7 g/dl (12.0-15.5); MEAN CORPUSCULAR HEMOGLOBIN 31.7 pg (27.0-33.0); MEAN CORPUSCULAR HGB CONC 33.1 g/dl (32.0-36.5); MEAN CORPUSCULAR VOLUME 95.9 fl (80.0-96.0); PLATELET COUNT, AUTOMATED 277 10^3/uL (150-450); RED BLOOD COUNT 4.63 10^6/uL (4.00-5.40); WHITE BLOOD COUNT 6.8 10^3/uL (4.0-10.0)
[2022-02-10 12:44] LABS: ALBUMIN 3.8 GM/DL (3.2-5.2); BILIRUBIN,TOTAL 0.8 MG/DL (0.2-1.0); CALCIUM LEVEL 10.4 MG/DL (8.8-10.2); CHOLESTEROL RISK RATIO 2.76 (<5); CREATININE FOR GFR 1.16 MG/DL (0.55-1.30); GLOMERULAR FILTRATION RATE 47.3 (>32); POTASSIUM SERUM 4.3 MEQ/L (3.5-5.1); TOTAL PROTEIN 6.7 GM/DL (6.4-8.2)
[2022-02-10 12:52] LABS: TOTAL 25(OH) VITAMIN D 25.1 NG/ML (30.0-100.0)
[2022-02-10 12:53] LABS: PTH INTACT 188.2 PG/ML (18.5-88.0)
== END ==
LOC: M LABDRWAD 11:30
PROVIDERS: ATTEND Family Medicine
DX: E21.3 Hyperparathyroidism, unspecified (principal); I10 Essential (primary) hypertension

== ENCOUNTER → 2022-07-25 | Outpatient (CLI) | payer MEDICARE ==
[2022-07-25 13:17] LABS: BASO # 0.1 10^3/uL (0.0-0.2); EOS # 0.2 10^3/uL (0.0-0.5); EOS % 2.5 % (0.0-3.0); HEMATOCRIT 45.4 % (36.0-47.0); HEMOGLOBIN 14.9 g/dl (12.0-15.5); LYMPH % 33.2 % (24.0-44.0); MEAN CORPUSCULAR HEMOGLOBIN 32.2 pg (27.0-33.0); MEAN CORPUSCULAR HGB CONC 32.8 g/dl (32.0-36.5); MEAN CORPUSCULAR VOLUME 98.1 fl (80.0-96.0); MONO # 0.5 10^3/uL (0.0-0.8); MONO % 8.6 % (2.0-8.0); NEUTROPHILS # 3.2 10^3/uL (1.5-8.5); NEUTROPHILS % 54.4 % (36.0-66.0); PLATELET COUNT, AUTOMATED 271 10^3/uL (150-450); RED BLOOD COUNT 4.63 10^6/uL (4.00-5.40); WHITE BLOOD COUNT 5.9 10^3/uL (4.0-10.0)
[2022-07-25 13:57] LABS: ALBUMIN 3.5 GM/DL (3.2-5.2); BILIRUBIN,TOTAL 0.9 MG/DL (0.2-1.0); CHOLESTEROL RISK RATIO 3.56 (<5); CREATININE FOR GFR 1.02 MG/DL (0.55-1.30); GLOMERULAR FILTRATION RATE 54.8 (>32); POTASSIUM SERUM 4.1 MEQ/L (3.5-5.1); TOTAL PROTEIN 6.6 GM/DL (6.4-8.2)
[2022-07-25 14:35] LABS: PTH INTACT 143.6 PG/ML (18.5-88.0); TOTAL 25(OH) VITAMIN D 39.6 NG/ML (30.0-100.0)
== END ==
LOC: M ADAMS 09:01
PROVIDERS: ATTEND Family Medicine
DX: E21.3 Hyperparathyroidism, unspecified (principal); I10 Essential (primary) hypertension

== ENCOUNTER → 2022-08-02 | Outpatient (CLI) | payer MEDICARE | LOC: M ADAMS 10:34 | PROVIDERS: ATTEND Family Medicine | DX: R91.1 Solitary pulmonary nodule (principal); R05.9 Cough, unspecified ==

== ENCOUNTER → 2022-08-18 | Outpatient (CLI) | payer MEDICARE ==
[~2022-08-18] MED LIST changes: +ISOVUE-370 76% 100ML VIAL As Ordered ONE
== END ==
LOC: M RAD 13:41
PROVIDERS: ATTEND Family Medicine
DX: N28.1 Cyst of kidney, acquired (principal); K44.9 Diaphragmatic hernia without obstruction or gangrene; R91.1 Solitary pulmonary nodule
CPT/HCPCS: 71260; Q9967

== ENCOUNTER → 2022-10-03 | Outpatient (CLI) | payer MEDICARE ==
[~2022-10-03] MED LIST changes: -ISOVUE-370 76% 100ML VIAL As Ordered ONE
== END ==
LOC: M PLARAD 12:28
PROVIDERS: ATTEND Family Medicine
DX: R91.1 Solitary pulmonary nodule (principal); Q61.02 Congenital multiple renal cysts
CPT/HCPCS: 78815; A9552

== ENCOUNTER → 2023-08-22 | Outpatient (REF) | payer MEDICARE ==
[~2023-08-22] MED LIST changes: -LOSA100T45 PO; +LOSA100T46 PO
[2023-08-22 14:04] LABS: BASO # 0.1 10^3/uL (0.0-0.2); BASO % 1.4 % (0.0-1.0); EOS # 0.9 10^3/uL (0.0-0.5); HEMATOCRIT 47.1 % (36.0-47.0); HEMOGLOBIN 14.7 g/dl (12.0-15.5); LYMPH # 2.3 10^3/uL (1.5-5.0); LYMPH % 30.7 % (24.0-44.0); MEAN CORPUSCULAR HEMOGLOBIN 31.2 pg (27.0-33.0); MEAN CORPUSCULAR HGB CONC 31.2 g/dl (32.0-36.5); MONO # 0.8 10^3/uL (0.0-0.8); MONO % 11.1 % (2.0-8.0); NEUTROPHILS # 3.3 10^3/uL (1.5-8.5); NEUTROPHILS % 44.7 % (36.0-66.0); PLATELET COUNT, AUTOMATED 344 10^3/uL (150-450); RED BLOOD COUNT 4.71 10^6/uL (4.00-5.40); WHITE BLOOD COUNT 7.3 10^3/uL (4.0-10.0)
[2023-08-22 14:12] LABS: ALBUMIN 3.6 G/DL (3.2-5.2); BILIRUBIN,TOTAL 0.8 MG/DL (0.3-1.2); CALCIUM LEVEL 10.6 MG/DL (8.3-10.6); CHOLESTEROL RISK RATIO 3.97 (<5); CREATININE FOR GFR 1.2 MG/DL (0.55-1.30); GLOMERULAR FILTRATION RATE 45.3 (>32); HDL CHOLESTEROL 37.2 MG/DL (>40); LDL CHOLESTEROL 83.8 MG/DL (<100); NON-HDL-C 110.8 MG/DL; POTASSIUM SERUM 4.5 MMOL/L (3.5-5.1); PTH INTACT 201.6 PG/ML (18.5-88.0); TOTAL PROTEIN 6.7 G/DL (5.7-8.2)
[2023-08-22 14:13] LABS: TOTAL 25(OH) VITAMIN D 54.7 NG/ML (20.0-100.0)
== END ==
LOC: M LABDRWAD 13:12
PROVIDERS: ATTEND Family Medicine
DX: E21.3 Hyperparathyroidism, unspecified (principal); I10 Essential (primary) hypertension

== ENCOUNTER → 2024-02-09 | Outpatient (REF) | payer MEDICARE ==
[2024-02-09 13:30] LABS: ALBUMIN 3.7 G/DL (3.2-5.2); BILIRUBIN,TOTAL 0.9 MG/DL (0.3-1.2); CALCIUM LEVEL 10.4 MG/DL (8.3-10.6); CHOLESTEROL RISK RATIO 2.77 (<5); CREATININE FOR GFR 1.02 MG/DL (0.55-1.30); GLOMERULAR FILTRATION RATE 54.6 (>32); HDL CHOLESTEROL 48.3 MG/DL (>40); LDL CHOLESTEROL 68.1 MG/DL (<100); NON-HDL-C 85.7 MG/DL; POTASSIUM SERUM 4.1 MMOL/L (3.5-5.1); TOTAL PROTEIN 6.2 G/DL (5.7-8.2)
[2024-02-09 13:31] LABS: BASO # 0.1 10^3/uL (0.0-0.2); BASO % 0.9 % (0.0-1.0); EOS # 0.1 10^3/uL (0.0-0.5); EOS % 2.4 % (0.0-3.0); HEMATOCRIT 46.1 % (36.0-47.0); LYMPH # 1.4 10^3/uL (1.5-5.0); LYMPH % 24.9 % (24.0-44.0); MEAN CORPUSCULAR HEMOGLOBIN 32.5 pg (27.0-33.0); MEAN CORPUSCULAR HGB CONC 32.5 g/dl (32.0-36.5); MEAN CORPUSCULAR VOLUME 99.8 fl (80.0-96.0); MONO # 0.5 10^3/uL (0.0-0.8); MONO % 9.3 % (2.0-8.0); NEUTROPHILS # 3.4 10^3/uL (1.5-8.5); PLATELET COUNT, AUTOMATED 240 10^3/uL (150-450); RED BLOOD COUNT 4.62 10^6/uL (4.00-5.40); WHITE BLOOD COUNT 5.5 10^3/uL (4.0-10.0)
[2024-02-09 13:32] LABS: TOTAL 25(OH) VITAMIN D 45.1 NG/ML (20.0-100.0)
== END ==
LOC: M LAB REF 12:31 → M LABDRWAD 12:31
PROVIDERS: ATTEND Family Medicine
DX: I10 Essential (primary) hypertension (principal); E21.3 Hyperparathyroidism, unspecified

== ENCOUNTER → 2024-02-14 | Outpatient (REF) | payer MEDICARE | LOC: M LAB REF 09:48 | PROVIDERS: ATTEND Family Medicine | DX: E21.3 Hyperparathyroidism, unspecified (principal); I10 Essential (primary) hypertension ==

== ENCOUNTER → 2024-06-21 | Outpatient (CLI) | payer MEDICARE | LOC: M WHC 12:18 | PROVIDERS: ATTEND Family Medicine | DX: M81.0 Age-related osteoporosis without current pathological fracture (principal); M85.88 Other specified disorders of bone density and structure, other site ==

== ENCOUNTER → 2025-02-20 | Outpatient (REF) | payer MEDICARE ==
[2025-02-20 15:08] LABS: BASO # 0.1 10^3/uL (0.0-0.2); BASO % 1.5 % (0.0-1.0); EOS # 0.3 10^3/uL (0.0-0.5); EOS % 4.2 % (0.0-3.0); HEMATOCRIT 48.9 % (36.0-47.0); HEMOGLOBIN 15.7 g/dl (12.0-15.5); LYMPH # 2.2 10^3/uL (1.5-5.0); LYMPH % 36.4 % (24.0-44.0); MEAN CORPUSCULAR HEMOGLOBIN 32.3 pg (27.0-33.0); MEAN CORPUSCULAR HGB CONC 32.1 g/dl (32.0-36.5); MEAN CORPUSCULAR VOLUME 100.6 fl (80.0-96.0); MONO # 0.6 10^3/uL (0.0-0.8); MONO % 10.3 % (2.0-8.0); NEUTROPHILS # 2.8 10^3/uL (1.5-8.5); NEUTROPHILS % 47.3 % (36.0-66.0); PLATELET COUNT, AUTOMATED 308 10^3/uL (150-450); RED BLOOD COUNT 4.86 10^6/uL (4.00-5.40)
[2025-02-20 15:41] LABS: TOTAL 25(OH) VITAMIN D 53.1 NG/ML (20.0-100.0)
[2025-02-20 15:57] LABS: BILIRUBIN,TOTAL 1.1 MG/DL (0.3-1.2); CALCIUM LEVEL 10.5 MG/DL (8.3-10.6); CHOLESTEROL RISK RATIO 2.94 (<5); CREATININE FOR GFR 1.25 MG/DL (0.55-1.30); GLOMERULAR FILTRATION RATE 41.5 (>32); HDL CHOLESTEROL 47.6 MG/DL (>40); LDL CHOLESTEROL 74.6 MG/DL (<100); NON-HDL-C 92.4 MG/DL; POTASSIUM SERUM 4.3 MMOL/L (3.5-5.1); PTH INTACT 196.6 PG/ML (18.5-88.0); TOTAL PROTEIN 6.9 G/DL (5.7-8.2)
== END ==
LOC: M LABDRWAD 13:13
PROVIDERS: ATTEND Family Medicine
DX: E21.3 Hyperparathyroidism, unspecified (principal); I10 Essential (primary) hypertension

== ENCOUNTER → 2025-02-21 | Outpatient (CLI) | payer MEDICARE | LOC: M LAB 09:32 | PROVIDERS: ATTEND Family Medicine | DX: E21.3 Hyperparathyroidism, unspecified (principal) ==

== ENCOUNTER → 2025-08-22 | Outpatient (CLI) | payer MEDICARE | LOC: M ADAMS 11:29 | PROVIDERS: ATTEND Student in an Organized Health Care Education/Training Program | DX: R10.20 Pelvic and perineal pain unspecified side (principal) ==